=== PATIENT | female | born 1960 | race Caucasian/White ===

== ENCOUNTER → 2020-08-29 | Outpatient (CLI) | payer OTHER | LOC: COL.RAD 14:36 | DX: J01.20 Acute ethmoidal sinusitis, unspecified (principal) ==

== ENCOUNTER → 2020-11-01 | Outpatient (CLI) | payer OTHER | LOC: MC.RAD 10:24 | DX: Z12.31 Encounter for screening mammogram for malignant neoplasm of breast (principal); H92.02 Otalgia, left ear; R51.9 Headache, unspecified ==

== ENCOUNTER → 2022-02-01 | Outpatient (CLI) | payer OTHER | LOC: COL.RAD 12:48 | DX: R59.0 Localized enlarged lymph nodes (principal) ==

== ENCOUNTER → 2023-07-23 | Outpatient (CLI) | payer OTHER ==
[~2023-07-23] MED LIST: PREDNISONE20 MG PO; VALTREX1 GM PO
== END ==
LOC: MC.RAD 08:23
DX: Z12.31 Encounter for screening mammogram for malignant neoplasm of breast (principal)